=== PATIENT | female | born 1995 | race Caucasian/White ===

== ENCOUNTER 2016-10-13 01:24 | Emergency (ER) | payer OTHER ==
[~2016-10-13 01:24] MED LIST: CELEXA; CELEXA20 MG PO; NO MEDICATIONS; TESTOSTERONE; VOLTAREN75 MG PO; ZOFRAN ODT4 MG PO
[2016-10-13] MEDS ORDERED: WELLBUTRIN SR150 M1 (01:36)
[2016-10-13] MEDS ORDERED: VIIBRYD20 MG (01:36)
[2016-10-13] MEDS ORDERED: VITAMIN D350000 UNIT (01:37)
== END 2016-10-13 03:43 | disposition home or self-care (01) ==
LOC: SED 01:24
DX: F41.0 Panic disorder [episodic paroxysmal anxiety] (principal)
CPT/HCPCS: 99283